=== PATIENT | male | born 1970 | race American Indian/Alaskan Native ===

== ENCOUNTER 2023-06-06 14:30 | Observation (INO) | payer OTHER ==
[2023-06-06 14:41] VITALS: BMI 29.0
[2023-06-06] MEDS ORDERED: SODIUM CHLORIDE 0.9% 500 ML INFUS.BAG IV ONE (15:48)
[2023-06-06 16:08] LABS: BASO % 0.3 % (0-2.0); EOS % 0.1 % (0-4.5); HEMATOCRIT 42.7 % (35.4-49); HEMOGLOBIN 14.7 GM/dL (11.7-16.9); LYMPH % 20.1 % (8-40); MCH 29.8 pg (25.7-33.7); MCHC 34.3 g/dl (32.0-35.9); MEAN CELL VOLUME 86.8 fl (80-96); MEAN PLT VOLUME 7.7 fl (7.5-11.1); MONO % 8.7 % (3.8-10.2); NEUT % 70.8 % (42.8-82.8); PLATELET COUNT 272 10^3/uL (134-434); RBC 4.92 M/mm3 (4.00-5.60); RDW 13.5 % (11.9-15.9); WHITE BLOOD COUNT 6.5 K/mm3 (4.0-10.0)
[2023-06-06 16:35] LABS: POTASSIUM 4.6 mmol/L (3.5-5.1)
[2023-06-06 16:37] LABS: CALCIUM 9.3 mg/dL (8.5-10.1)
[2023-06-06 16:38] LABS: ALBUMIN 4.2 g/dl (3.4-5.0); BLOOD UREA NITROGEN 11.3 mg/dL (7-18); MAGNESIUM 1.8 mg/dL (1.8-2.4)
[2023-06-06 16:43] LABS: BILIRUBIN,TOTAL 0.4 mg/dL (0.2-1); TOT PROT 7.8 g/dl (6.4-8.2)
[2023-06-06 18:24] LABS: PH,URINE 6.5 (5.0-8.0); URINE APPEARANCE CLEAR; URINE BILIRUBIN NEGATIVE (NEGATIVE); URINE COLOR YELLOW; URINE GLUCOSE (UA) NEGATIVE (NEGATIVE); URINE KETONE NEGATIVE (NEGATIVE); URINE LEUK ESTERASE NEGATIVE (NEGATIVE); URINE NITRITE NEGATIVE (NEGATIVE); URINE PROTEIN NEGATIVE (NEGATIVE); URINE UROBILINOGEN 0.2 mg/dL (0.2-1.0)
[2023-06-06] MEDS ORDERED: ACETAMINOPHEN 325 MG TABLET (FP) PO PRN (21:23)
[2023-06-06] MEDS ORDERED: DOCUSATE SODIUM 100 MG CAPSULE (FP) PO PRN (21:23)
[2023-06-07 06:55] VITALS: RESP 20
[2023-06-07 08:10] LABS: INR 1.03 (0.83-1.09)
[2023-06-07 08:13] LABS: ACTIVATED PTT 30.4 SECONDS (25.2-36.5)
[2023-06-07 08:15] LABS: HEMATOCRIT 40.8 % (35.4-49); HEMOGLOBIN 13.8 GM/dL (11.7-16.9); MCH 30.1 pg (25.7-33.7); MCHC 33.8 g/dl (32.0-35.9); MEAN CELL VOLUME 89.1 fl (80-96); MEAN PLT VOLUME 8.5 fl (7.5-11.1); PLATELET COUNT 239 10^3/uL (134-434); RBC 4.59 M/mm3 (4.00-5.60); RDW 13.2 % (11.9-15.9); WHITE BLOOD COUNT 5.4 K/mm3 (4.0-10.0)
[2023-06-07 08:23] LABS: CHLORIDE 110 mmol/L (98-107); POTASSIUM 3.7 mmol/L (3.5-5.1); SODIUM 145 mmol/L (136-145)
[2023-06-07 08:32] LABS: CALCIUM 8.8 mg/dL (8.5-10.1)
[2023-06-07 08:33] LABS: ALBUMIN 3.6 g/dl (3.4-5.0); ANION GAP 9 MMOL/L (8-16); BLOOD UREA NITROGEN 12.7 mg/dL (7-18); CO2 26 mmol/L (21-32); GLUCOSE,RANDOM 95 mg/dL (74-106)
[2023-06-07 08:36] LABS: CREATININE 0.9 mg/dL (0.55-1.3); SGOT/AST 30 U/L (15-37)
[2023-06-07 08:38] LABS: BILIRUBIN,TOTAL 0.6 mg/dL (0.2-1); SGPT/ALT 60 U/L (13-61); TOT PROT 6.6 g/dl (6.4-8.2)
[2023-06-07 08:39] LABS: ALK PHOS 48 U/L (45-117)
[2023-06-08 08:22] LABS: CHOLESTEROL 219 mg/dL (50-200); LDL CHOLESTEROL (ONLY SJRH) 127 mg/dL (5-100)
[2023-06-08 08:25] LABS: HDL CHOLESTEROL 59 mg/dL (40-60)
[2023-06-08 12:16] VITALS: BP 142/93; PULSE 57; TEMP 97.8
== END 2023-06-08 15:50 | disposition home or self-care (01) ==
LOC: JER 14:30 → JERBED 20:14 → J4W 06-07 01:05
PROVIDERS: ADMIT Internal Medicine; ATTEND Family Medicine
PROC: 3E0337Z Introduction of Electrolytic and Water Balance Substance into Peripheral Vein, Percutaneous Approach (ICD-10-PCS; principal; 2023-06-06)
DX: R06.00 Dyspnea, unspecified (principal); E87.8 Other disorders of electrolyte and fluid balance, not elsewhere classified; E78.5 Hyperlipidemia, unspecified; I10 Essential (primary) hypertension; R00.2 Palpitations; R68.83 Chills (without fever); R55 Syncope and collapse; R53.1 Weakness; Z91.148 Patient's other noncompliance with medication regimen for other reason; Z29.8 Encounter for other specified prophylactic measures
CPT/HCPCS: 36415; 70450-TC; 71045-TC-FY; 71250-TC; 80053; 80061; 81003; 83735; 84439; 84443; 84479; 84484; 85025; 85027; 85610; 85651; 85730; 86140; 93005; 93010; 99285-25; G0378